=== PATIENT | male | born 1960 | race Caucasian/White ===

== ENCOUNTER 2023-10-27 10:31 | Inpatient (IN) | payer BC ==
[2023-10-27 12:18] LABS: #Eosinphils 0.2 thou/uL (0.0-0.7); #Monocytes 0.6 thou/uL (0.11-0.59); %Basophils 0.4 % (0.0-1.0); %Eosinophils 4.3 % (0.0-10.0); %Lymphocytes 30.3 % (21.0-51.0); %Monocytes 11.4 % (0.0-10.0); %Neutrophils 53.6 % (42.0-75.0); Hematocrit 36.9 % (42.0-52.0); Mean Corpuscular HGB CONC 35.2 g/dL (32.0-36.0); Mean Corpuscular Hemoglobin 30.5 pg (27.0-31.0); Mean Corpuscular Volume 86.6 fl (78.0-98.0); Mean Platelet Volume 9.8 fL (7.4-10.4); Platelet Count 217 10x3/uL (130-400); RBC Distribution Width 12.1 % (11.5-14.5); Red Blood Cell (RBC) Count 4.26 mill/uL (4.70-6.10); White Blood Cell (WBC) Count 5.6 10x3/uL (4.8-10.8)
[2023-10-27 12:42] LABS: ALT (SGPT) 36 U/L (8-55); AST (SGOT) 23 U/L (5-34); Albumin 4.2 g/dL (3.4-4.8); Alkaline Phosphatase 52 U/L (40-110); Anion Gap 12 mmol/L (10-20); BUN (Urea Nitrogen) 20 mg/dL (8.4-25.7); Bilirubin, Total 0.4 mg/dL (0.2-1.2); Calc. Creatinine Clearance 0 mL/min (70-130); Carbon Dioxide 23 mmol/L (23-31); Chloride 104 mmol/L (98-107); Estimated GFR 96; Glucose 201 mg/dL (80-115); Potassium 4.1 mmol/L (3.5-5.1); Protein, Total 7.2 g/dL (5.8-8.1); Sodium 135 mmol/L (136-145)
[2023-10-27 12:46] LABS: Troponin I 0.076 ng/mL (< 0.028)
[2023-10-27] MEDS ORDERED: Aspirin Chewable 81 MG TAB ONE (14:06)
[2023-10-27] MEDS ORDERED: Acetaminophen 650 MG Suppository PR PRN (15:20)
[2023-10-27] MEDS ORDERED: Acetaminophen 325 MG TAB PO PRN (15:20)
[2023-10-27] MEDS ORDERED: Nitroglycerin 0.4 MG TAB (25 Tab Bottle) SL PRN (15:21)
[2023-10-27] MEDS ORDERED: Dextrose 50% Abboject 50 ML SYRINGE SLOW IVP PRN (15:24)
[2023-10-27] MEDS ORDERED: Insulin Regular 300 UNITS/3 ML VIAL SC PRN ×2 (15:24)
[2023-10-27] MEDS ORDERED: Glucagon 1 MG/ML KIT IM PRN (15:24)
[2023-10-27] MEDS ORDERED: Dextrose 5% in Water 1,000 ML IV PRN (15:24)
[2023-10-27 16:11] VITALS: BMI 28.8
[2023-10-27 19:29] LABS: Troponin I 0.089 ng/mL (< 0.028)
[2023-10-27] MEDS ORDERED: Lisinopril 5 MG TAB PO SCH (21:00)
[2023-10-27] MEDS ORDERED: Amlodipine 5 MG TAB PO SCH (21:00)
[2023-10-27 22:36] LABS: Troponin I 0.076 ng/mL (< 0.028)
[2023-10-28 05:29] LABS: #Eosinphils 0.3 thou/uL (0.0-0.7); #Monocytes 0.7 thou/uL (0.11-0.59); #Neutrophils 2.1 thou/uL (1.40-6.50); %Basophils 0.8 % (0.0-1.0); %Eosinophils 6.2 % (0.0-10.0); %Monocytes 14.1 % (0.0-10.0); %Neutrophils 40.7 % (42.0-75.0); Hematocrit 36.8 % (42.0-52.0); Hemoglobin 12.5 g/dL (14.0-18.0); Mean Corpuscular Hemoglobin 30.1 pg (27.0-31.0); Mean Corpuscular Volume 88.7 fl (78.0-98.0); Mean Platelet Volume 9.5 fL (7.4-10.4); Platelet Count 214 10x3/uL (130-400); RBC Distribution Width 12.3 % (11.5-14.5); Red Blood Cell (RBC) Count 4.15 mill/uL (4.70-6.10); White Blood Cell (WBC) Count 5.2 10x3/uL (4.8-10.8)
[2023-10-28 05:54] LABS: Anion Gap 12 mmol/L (10-20); BUN (Urea Nitrogen) 17 mg/dL (8.4-25.7); Calc. Creatinine Clearance 100 mL/min (70-130); Calcium 8.9 mg/dL (7.8-10.44); Carbon Dioxide 26 mmol/L (23-31); Cardiac Risk 5.3 (Less than 4.5); Chloride 104 mmol/L (98-107); Cholesterol 160 mg/dl (< 200 Desired); Estimated GFR 88; Glucose 126 mg/dL (80-115); HDL Cholesterol 30 mg/dL (>60 Neg Risk); LDL Cholesterol, Calculated 106 mg/dL; Sodium 138 mmol/L (136-145); Triglycerides 121 mg/dL (Less than 150)
[2023-10-28] MEDS ORDERED: Glimepiride 4 MG TAB PO SCH (08:00)
[2023-10-28] MEDS ORDERED: Iopamidol 370 76% 100 ML VIAL ONE (08:51)
[2023-10-28] MEDS ORDERED: NIFEdipine XL 30 MG ER.TAB PO SCH (09:00)
[2023-10-28] MEDS ORDERED: Aspirin Chewable 81 MG TAB PO SCH (09:00)
[2023-10-28] MEDS ORDERED: Lidocaine 1% (PF) 30 ML VIAL ONE (09:31)
[2023-10-28] MEDS ORDERED: Verapamil 5 MG/2 ML VIAL ONE (09:31)
[2023-10-28] MEDS ORDERED: Adenosine 6 MG/2 ML VIAL ONE (09:31)
[2023-10-28] MEDS ORDERED: Heparin 10,000 UNITS/ 10 ML VIAL ONE (09:31)
[2023-10-28] MEDS ORDERED: Nitroglycerin 50 MG/250 ML BOT 0 ML ONE (09:31)
[2023-10-28] MEDS ORDERED: Heparin 25,000 units/D5W 500 ML ONE (10:00)
[2023-10-28] MEDS ORDERED: Albumin 5% 500 ML ONE (10:05)
[2023-10-28] MEDS ORDERED: diphenhydrAMINE 50 MG/ML VIAL ONE (10:10)
[2023-10-28] MEDS ORDERED: Fentanyl 250 MCG/5 ML VIAL ONE (10:30)
[2023-10-28] MEDS ORDERED: Heparin 10,000 UNITS/1 ML VIAL 30,000 UNITS in Sodium Chloride 0.9% 1,000 ML FS SCH (10:30)
[2023-10-28] MEDS ORDERED: Midazolam HCl 5 mg/ml Vial ONE (10:31)
[2023-10-28] MEDS ORDERED: Milrinone 10 MG/10 ML VIAL ONE ×2 (10:32→11:16)
[2023-10-28] MEDS ORDERED: ePHEDrine Sulfate 50 MG/10 ML VIAL ONE ×2 (10:35→10:58)
[2023-10-28] MEDS ORDERED: Mannitol 12.5 GM/50 ML ONE (10:58)
[2023-10-28] MEDS ORDERED: Potassium Chloride 60 MEQ/30 ML VIAL ONE (10:58)
[2023-10-28] MEDS ORDERED: Magnesium 5 GM/10 ML VIAL ONE (10:58)
[2023-10-28] MEDS ORDERED: Vancomycin 1 GM VIAL ONE (10:58)
[2023-10-28] MEDS ORDERED: Aminocaproic Acid 5 GM/20 ML VIAL ONE (10:58)
[2023-10-28] MEDS ORDERED: Sodium Bicarb 50 MEQ/50 ML VIAL ONE (10:58)
[2023-10-28] MEDS ORDERED: Lidocaine 1% PF 5 ML VIAL ONE (10:58)
[2023-10-28] MEDS ORDERED: Thrombin 5000 UNITS/5 ML VIAL ONE (10:58)
[2023-10-28] MEDS ORDERED: Rocuronium Bromide 10 MG/ML (10ML VIAL) ONE (10:58)
[2023-10-28] MEDS ORDERED: Heparin 30,000 units/30 ml VIAL ONE (10:58)
[2023-10-28] MEDS ORDERED: Norepinephrine 4 MG/4 ML VIAL ONE (10:58)
[2023-10-28] MEDS ORDERED: Heparin 5,000 UNITS/ML VIAL ONE (10:58)
[2023-10-28] MEDS ORDERED: Lidocaine 2% PF 100 mg/5 ml Syringe ONE (10:58)
[2023-10-28] MEDS ORDERED: PROPOFOL 200 MG/20 ML VIAL ONE (10:58)
[2023-10-28] MEDS ORDERED: Papaverine 60 MG/2 ML VIAL ONE (10:58)
[2023-10-28] MEDS ORDERED: Protamine Sulfate 250 MG/25 ML VIAL ONE (10:58)
[2023-10-28] MEDS ORDERED: Cardioplegic Soln 1,000 ML BAG ONE (10:58)
[2023-10-28] MEDS ORDERED: Calcium Chloride 1 GM/10 ML Abboject SYRINGE ONE (10:58)
[2023-10-28] MEDS ORDERED: PHENYLEPHRINE-NS 100 MCG/ML 10 ML SYRINGE ONE ×2 (11:12→12:07)
[2023-10-28] MEDS ORDERED: Insulin Regular 300 UNITS/3 ML VIAL ONE (11:12)
[2023-10-28] MEDS ORDERED: Milrinone Lactate/D5W 20 MG in Premix 1 BAG IV SCH (11:30)
[2023-10-28] MEDS ORDERED: Isoflurane INH ANEST 100 ML BOTTLE ONE (11:35)
[2023-10-28] MEDS ORDERED: Sodium Chloride 0.9% 100 ML ONE (12:01)
[2023-10-28] MEDS ORDERED: Sodium Chloride 0.9% 250 ML 250 ML ONE (12:01)
[2023-10-28] MEDS: Insulin Regular 300 UNITS/3 ML VIAL SC PRN (13:35)
[2023-10-28] MEDS ORDERED: DOPamine 400 MG/D5W 250 ML 250 ML IVPB PRN (13:44)
[2023-10-28] MEDS ORDERED: Ipratropium/Albuterol 3 ML NEB NEB PRN (13:44)
[2023-10-28] MEDS ORDERED: Hetastarch 6% 500 ML 500 ML IVPB PRN (13:44)
[2023-10-28] MEDS ORDERED: niCARdipine 25 MG in Sodium Chloride 0.9% 250 ML 250 ML IVPB PRN (13:44)
[2023-10-28] MEDS ORDERED: Post-Op Insulin Drip Protocol IVPB ONE (13:44)
[2023-10-28] MEDS ORDERED: Guaifenesin DM 100-10/5 ML UDCUP PO PRN (13:44)
[2023-10-28] MEDS ORDERED: Promethazine HCl 25 MG/ML VIAL IVPB PRN (13:44)
[2023-10-28] MEDS ORDERED: Acetaminophen 325 MG TAB PO PRN (13:44)
[2023-10-28] MEDS ORDERED: fentaNYL 50 mcg/mL 1 mL Vial SLOW IVP PRN ×2 (13:44)
[2023-10-28] MEDS ORDERED: Mag-Al 1200 mg/1200 mg/30 ML UDCUP PO PRN (13:44)
[2023-10-28] MEDS ORDERED: Bisacodyl 10 MG SUPP PR PRN (13:44)
[2023-10-28] MEDS ORDERED: Bisacodyl 5 MG TAB PO PRN (13:44)
[2023-10-28] MEDS ORDERED: Morphine 2 MG/ML VIAL SLOW IVP PRN (13:44)
[2023-10-28] MEDS ORDERED: Nitroglycerin 50 MG/250 ML BOT 250 ML IVPB PRN (13:44)
[2023-10-28] MEDS ORDERED: hydrALAZINE 20 MG/ML VIAL SLOW IVP PRN (13:44)
[2023-10-28] MEDS ORDERED: NOREPINEPHRINE 8 MG/250 ML-D5W 250 ML IVPB PRN (13:44)
[2023-10-28] MEDS ORDERED: HYDROcodone/Acetaminophen 5/325 mg Tablet PO PRN (13:44)
[2023-10-28] MEDS ORDERED: Ondansetron PF 4 MG/2 ML Vial IVP PRN (13:44)
[2023-10-28] MEDS ORDERED: Magnesium Sulfate 5 GM in Sodium Chloride 0.9% 1,000 ML IV SCH (13:44)
[2023-10-28] MEDS ORDERED: HUMULIN R 100 UNITS in Sodium Chloride 0.9% 100 ML IVPB SCH (14:00)
[2023-10-28] MEDS ORDERED: Dextrose 50% Abboject 50 ML SYRINGE SLOW IVP PRN (14:00)
[2023-10-28] MEDS ORDERED: Glucagon 1 MG/ML KIT SC PRN (14:00)
[2023-10-28] MEDS ORDERED: Dextrose 5% in Water 1,000 ML IV PRN (14:00)
[2023-10-28 14:08] LABS: Actual Bicarbonate (HCO3a) 19.7 mEq/L (22-28); Base Excess (BEa) -5.5 mEq/L (-2.0 to +3.0); CO2 Tension 37.7 mmHg (35.0-45.0); Carboxyhemoglobin (COHb) 0.5 gm% (0.0-3.0); Hematocrit-ABG 32 % (42.0-52.0); Hemoglobin (Hb) 10.8 g/dL (14.0-18.0); O2 Tension (PaO2), arterial 75.7 mmHg (> 80.0); Potassium - ABG Lab 4.11 mmol/L (3.70-5.30); pH, Arterial 7.337 (7.35-7.45)
[2023-10-28 14:10] LABS: Puncture Site Arterial Line
[2023-10-28 14:28] LABS: #Eosinphils 0.2 thou/uL (0.0-0.7); #Monocytes 0.9 thou/uL (0.11-0.59); #Neutrophils 9.2 thou/uL (1.40-6.50); %Basophils 0.2 % (0.0-1.0); %Eosinophils 1.2 % (0.0-10.0); %Lymphocytes 15.9 % (21.0-51.0); %Monocytes 6.9 % (0.0-10.0); %Neutrophils 75.1 % (42.0-75.0); Hematocrit 31.1 % (42.0-52.0); Hemoglobin 10.7 g/dL (14.0-18.0); Mean Corpuscular HGB CONC 34.4 g/dL (32.0-36.0); Mean Corpuscular Hemoglobin 30.5 pg (27.0-31.0); Mean Corpuscular Volume 88.6 fl (78.0-98.0); Mean Platelet Volume 9.8 fL (7.4-10.4); Platelet Count 183 10x3/uL (130-400); RBC Distribution Width 12.4 % (11.5-14.5); Red Blood Cell (RBC) Count 3.51 mill/uL (4.70-6.10); White Blood Cell (WBC) Count 12.3 10x3/uL (4.8-10.8)
[2023-10-28 14:42] LABS: INR-International Normal Ratio 1.3; PTT 28.4 sec (22.9-36.1); Prothrombin Time 16.7 sec (12.0-14.7)
[2023-10-28 14:55] LABS: Anion Gap 11 mmol/L (10-20); Carbon Dioxide 23 mmol/L (23-31); Chloride 110 mmol/L (98-107); Potassium 4.3 mmol/L (3.5-5.1); Sodium 140 mmol/L (136-145)
[2023-10-28 14:56] LABS: BUN (Urea Nitrogen) 16 mg/dL (8.4-25.7); Calc. Creatinine Clearance 105 mL/min (70-130); Calcium 7.4 mg/dL (7.6-10.4); Estimated GFR 94; Glucose 159 mg/dL (80-115)
[2023-10-28] MEDS: Potassium Chloride 20 MEQ/100 ML PREMIX BAG IVPB PRN (15:58)
[2023-10-28 17:05] LABS: Base Excess (BEa) -8.2 mEq/L (-2.0 to +3.0); CO2 Tension 39.6 mmHg (35.0-45.0); Calcium, Ionized (arterial) 1.11 mmol/L (1.12-1.30); Carboxyhemoglobin (COHb) 1.3 gm% (0.0-3.0); Hematocrit-ABG 32 % (42.0-52.0); Hemoglobin (Hb) 10.9 g/dL (14.0-18.0); O2 Tension (PaO2), arterial 85.4 mmHg (> 80.0); pH, Arterial 7.275 (7.35-7.45)
[2023-10-28 17:10] LABS: Puncture Site Arterial Line
[2023-10-28] MEDS ORDERED: Sodium Bicarb 50 MEQ/50 ML Abboject 8.4% SYRINGE IVP SCH ×2 (17:30→19:00)
[2023-10-28] MEDS: CEFAZOLIN 2 GM in Sodium Chloride 0.9% 100 ML IVPB SCH (17:35)
[2023-10-28] MEDS: Ketorolac Tromethamine 30 MG/ML VIAL IVP SCH ×2 (17:35→23:12)
[2023-10-28 18:37] LABS: Actual Bicarbonate (HCO3a) 20.5 mEq/L (22-28); Base Excess (BEa) -4.8 mEq/L (-2.0 to +3.0); CO2 Tension 38.7 mmHg (35.0-45.0); Calcium, Ionized (arterial) 1.06 mmol/L (1.12-1.30); Carboxyhemoglobin (COHb) 0.2 gm% (0.0-3.0); Hematocrit-ABG 31 % (42.0-52.0); Hemoglobin (Hb) 10.6 g/dL (14.0-18.0); O2 Tension (PaO2), arterial 61.5 mmHg (> 80.0); Potassium - ABG Lab 4.23 mmol/L (3.70-5.30); pH, Arterial 7.342 (7.35-7.45)
[2023-10-28 18:41] LABS: Puncture Site Arterial Line
[2023-10-28 19:48] LABS: Hematocrit 29.1 % (42.0-52.0); Hemoglobin 10.1 g/dL (14.0-18.0)
[2023-10-28] MEDS: Famotidine/PF 20 mg/2ml Vial SLOW IVP SCH (20:00)
[2023-10-28 20:06] LABS: Potassium 4.3 mmol/L (3.5-5.1)
[2023-10-28] MEDS ORDERED: Atorvastatin Calcium 20 MG TAB PO SCH ×2 (21:00)
[2023-10-29] MEDS: Lactated Ringer's 1,000 ML IV SCH ×2 (00:23→02:00)
[2023-10-29] MEDS: CEFAZOLIN 2 GM in Sodium Chloride 0.9% 100 ML IVPB SCH ×2 (01:59→09:44)
[2023-10-29 04:37] LABS: #Monocytes 0.7 thou/uL (0.11-0.59); #Neutrophils 4.9 thou/uL (1.40-6.50); %Basophils 0.2 % (0.0-1.0); %Eosinophils 0.2 % (0.0-10.0); %Lymphocytes 13.1 % (21.0-51.0); %Monocytes 11.2 % (0.0-10.0); %Neutrophils 74.7 % (42.0-75.0); Hematocrit 24.1 % (42.0-52.0); Hemoglobin 8.1 g/dL (14.0-18.0); Mean Corpuscular HGB CONC 33.6 g/dL (32.0-36.0); Mean Corpuscular Volume 89.3 fl (78.0-98.0); Platelet Count 156 10x3/uL (130-400); RBC Distribution Width 12.7 % (11.5-14.5); White Blood Cell (WBC) Count 6.6 10x3/uL (4.8-10.8)
[2023-10-29 05:06] LABS: Anion Gap 12 mmol/L (10-20); BUN (Urea Nitrogen) 16 mg/dL (8.4-25.7); Calc. Creatinine Clearance 109 mL/min (70-130); Calcium 7.4 mg/dL (7.8-10.44); Carbon Dioxide 24 mmol/L (23-31); Chloride 110 mmol/L (98-107); Estimated GFR 96; Glucose 124 mg/dL (80-115); Potassium 4.1 mmol/L (3.5-5.1); Sodium 142 mmol/L (136-145)
[2023-10-29] MEDS: Ketorolac Tromethamine 30 MG/ML VIAL IVP SCH ×3 (05:33→18:34)
[2023-10-29] MEDS ORDERED: Insulin Glargine 30 UNITS/0.3 ML VIAL SC SCH (07:45)
[2023-10-29] MEDS: Magnesium 2 GM/50 ML(in water) 2 GM in Premix 1 BAG IVPB SCH (08:30)
[2023-10-29] MEDS: Aspirin 325 MG TAB PO SCH (08:30)
[2023-10-29] MEDS: Glimepiride 4 MG TAB PO SCH (08:30)
[2023-10-29] MEDS: Famotidine/PF 20 mg/2ml Vial SLOW IVP SCH (08:31)
[2023-10-29] MEDS: Alogliptin 6.25 MG TAB PO SCH (09:14)
[2023-10-29] MEDS: HYDROcodone/Acetaminophen 5/325 mg Tablet PO PRN ×3 (09:44→21:15)
[2023-10-29] MEDS: Insulin Regular 300 UNITS/3 ML VIAL SC PRN ×3 (11:44→21:18)
[2023-10-29 13:47] LABS: Hematocrit 23.6 % (42.0-52.0); Hemoglobin 7.8 g/dL (14.0-18.0); Platelet Count 135 10x3/uL (130-400)
[2023-10-29] MEDS: Atorvastatin Calcium 20 MG TAB PO SCH (20:12)
[2023-10-30] MEDS: Ketorolac Tromethamine 30 MG/ML VIAL IVP SCH ×4 (00:14→17:48)
[2023-10-30 04:50] LABS: #Eosinphils 0.1 thou/uL (0.0-0.7); #Monocytes 0.7 thou/uL (0.11-0.59); #Neutrophils 4.2 thou/uL (1.40-6.50); %Basophils 0.3 % (0.0-1.0); %Eosinophils 1.4 % (0.0-10.0); %Lymphocytes 20.2 % (21.0-51.0); %Monocytes 10.8 % (0.0-10.0); %Neutrophils 67.1 % (42.0-75.0); Hematocrit 27.4 % (42.0-52.0); Mean Corpuscular HGB CONC 32.8 g/dL (32.0-36.0); Mean Corpuscular Hemoglobin 29.7 pg (27.0-31.0); Mean Corpuscular Volume 90.4 fl (78.0-98.0); Mean Platelet Volume 10.1 fL (7.4-10.4); Platelet Count 126 10x3/uL (130-400); RBC Distribution Width 13.2 % (11.5-14.5); Red Blood Cell (RBC) Count 3.03 mill/uL (4.70-6.10); White Blood Cell (WBC) Count 6.2 10x3/uL (4.8-10.8)
[2023-10-30 05:25] LABS: Anion Gap 11 mmol/L (10-20); BUN (Urea Nitrogen) 24 mg/dL (8.4-25.7); Calc. Creatinine Clearance 38 mL/min (70-130); Carbon Dioxide 24 mmol/L (23-31); Chloride 109 mmol/L (98-107); Estimated GFR 97; Glucose 138 mg/dL (80-115); Potassium 3.9 mmol/L (3.5-5.1); Sodium 140 mmol/L (136-145)
[2023-10-30] MEDS: Potassium Chloride 20 MEQ/100 ML PREMIX BAG IVPB PRN (05:59)
[2023-10-30] MEDS: Insulin Regular 300 UNITS/3 ML VIAL SC PRN ×3 (06:05→17:47)
[2023-10-30] MEDS ORDERED: Furosemide 40 MG/4 ML VIAL SLOW IVP SCH (07:30)
[2023-10-30] MEDS ORDERED: Artificial Tear Sol 15 ML BOT EA EYE PRN (07:40)
[2023-10-30] MEDS ORDERED: Nitroglycerin 0.4 MG TAB (25 Tab Bottle) SL PRN (07:40)
[2023-10-30] MEDS ORDERED: Mineral Oil ENEMA PR PRN (07:40)
[2023-10-30] MEDS: Metoprolol Tartrate 25 MG TAB PO SCH ×2 (08:21→20:36)
[2023-10-30] MEDS: Potassium Chloride 10 MEQ TAB PO SCH (08:21)
[2023-10-30] MEDS: Aspirin 325 MG TAB PO SCH (08:21)
[2023-10-30] MEDS: Glimepiride 4 MG TAB PO SCH (08:21)
[2023-10-30] MEDS: Magnesium 2 GM/50 ML(in water) 2 GM in Premix 1 BAG IVPB SCH (08:22)
[2023-10-30] MEDS ORDERED: Glucagon 1 MG/ML KIT SC PRN (08:30)
[2023-10-30] MEDS ORDERED: Dextrose 50% Abboject 50 ML SYRINGE SLOW IVP PRN (08:30)
[2023-10-30] MEDS ORDERED: Dextrose 5% in Water 1,000 ML IV PRN (08:30)
[2023-10-30] MEDS ORDERED: Famotidine/PF 20 mg/2ml Vial SLOW IVP SCH (09:00)
[2023-10-30] MEDS ORDERED: Furosemide 40 MG TAB PO SCH (09:00)
[2023-10-30] MEDS: Alogliptin 6.25 MG TAB PO SCH (09:16)
[2023-10-30] MEDS: Atorvastatin Calcium 20 MG TAB PO SCH (20:36)
[2023-10-31] MEDS: Ketorolac Tromethamine 30 MG/ML VIAL IVP SCH ×4 (00:13→17:57)
[2023-10-31] MEDS ORDERED: Furosemide 40 MG/4 ML VIAL SLOW IVP SCH (07:00)
[2023-10-31] MEDS: Alogliptin 6.25 MG TAB PO SCH (08:14)
[2023-10-31] MEDS: Aspirin 325 MG TAB PO SCH (08:14)
[2023-10-31] MEDS: Potassium Chloride 10 MEQ TAB PO SCH (08:14)
[2023-10-31] MEDS: Glimepiride 4 MG TAB PO SCH (08:14)
[2023-10-31] MEDS: Empagliflozin 10 MG TAB PO SCH (08:16)
[2023-10-31] MEDS: Insulin Regular 300 UNITS/3 ML VIAL SC PRN ×2 (17:57→22:21)
[2023-10-31] MEDS: Atorvastatin Calcium 20 MG TAB PO SCH (21:44)
[2023-11-01 04:44] LABS: #Eosinphils 0.4 thou/uL (0.0-0.7); #Monocytes 0.9 thou/uL (0.11-0.59); #Neutrophils 5.2 thou/uL (1.40-6.50); %Basophils 0.5 % (0.0-1.0); %Eosinophils 4.4 % (0.0-10.0); %Lymphocytes 19.3 % (21.0-51.0); %Monocytes 11.4 % (0.0-10.0); %Neutrophils 63.9 % (42.0-75.0); Hemoglobin 9.8 g/dL (14.0-18.0); Mean Corpuscular HGB CONC 32.7 g/dL (32.0-36.0); Mean Corpuscular Volume 91.7 fl (78.0-98.0); Mean Platelet Volume 10.3 fL (7.4-10.4); Platelet Count 228 10x3/uL (130-400); RBC Distribution Width 12.8 % (11.5-14.5); Red Blood Cell (RBC) Count 3.27 mill/uL (4.70-6.10); White Blood Cell (WBC) Count 8.1 10x3/uL (4.8-10.8)
[2023-11-01 05:21] LABS: Anion Gap 15 mmol/L (10-20); BUN (Urea Nitrogen) 32 mg/dL (8.4-25.7); Calc. Creatinine Clearance 88 mL/min (70-130); Carbon Dioxide 25 mmol/L (23-31); Chloride 104 mmol/L (98-107); Estimated GFR 71; Glucose 97 mg/dL (80-115); Potassium 3.8 mmol/L (3.5-5.1); Sodium 140 mmol/L (136-145)
[2023-11-01] MEDS: Aspirin 325 MG TAB PO SCH (09:06)
[2023-11-01] MEDS: Alogliptin 6.25 MG TAB PO SCH (09:06)
[2023-11-01] MEDS: Empagliflozin 10 MG TAB PO SCH (09:06)
[2023-11-01] MEDS: Potassium Chloride 10 MEQ TAB PO SCH (09:06)
[2023-11-01] MEDS: Glimepiride 4 MG TAB PO SCH (09:06)
[2023-11-01 12:12] VITALS: BP 132/72
[2023-11-01 12:49] VITALS: TEMP 97.7
== END 2023-11-01 17:30 | disposition home or self-care (01) | DRG 234 ==
LOC: ERS 10:31 → 2SW 15:47 → OBSVTOIN 10-28 10:55 → CCU 10-28 11:27 → 2NO 10-30 15:34
PROVIDERS: ADMIT Internal Medicine; ATTEND Internal Medicine
PROC: 4A023N7 Measurement of Cardiac Sampling and Pressure, Left Heart, Percutaneous Approach (ICD-10-PCS; principal; 2023-10-28)
PROC: 02100Z9 Bypass Coronary Artery, One Artery from Left Internal Mammary, Open Approach (ICD-10-PCS; 2023-10-28)
PROC: B2111ZZ Fluoroscopy of Multiple Coronary Arteries using Low Osmolar Contrast (ICD-10-PCS; 2023-10-28)
PROC: 021109W Bypass Coronary Artery, Two Arteries from Aorta with Autologous Venous Tissue, Open Approach (ICD-10-PCS; 2023-10-28)
PROC: 06BQ4ZZ Excision of Left Saphenous Vein, Percutaneous Endoscopic Approach (ICD-10-PCS; 2023-10-28)
PROC: B2151ZZ Fluoroscopy of Left Heart using Low Osmolar Contrast (ICD-10-PCS; 2023-10-28)
PROC: 5A1221Z Performance of Cardiac Output, Continuous (ICD-10-PCS; 2023-10-28)
PROC: 02L70CK Occlusion of Left Atrial Appendage with Extraluminal Device, Open Approach (ICD-10-PCS; 2023-10-28)
PROC: 4A133R1 Monitoring of Arterial Saturation, Peripheral, Percutaneous Approach (ICD-10-PCS; 2023-10-28)
PROC: 30233J1 Transfusion of Nonautologous Serum Albumin into Peripheral Vein, Percutaneous Approach (ICD-10-PCS; 2023-10-28)
PROC: 3E033XZ Introduction of Vasopressor into Peripheral Vein, Percutaneous Approach (ICD-10-PCS; 2023-10-28)
PROC: 30233N1 Transfusion of Nonautologous Red Blood Cells into Peripheral Vein, Percutaneous Approach (ICD-10-PCS; 2023-10-29)
DX: I21.4 Non-ST elevation (NSTEMI) myocardial infarction (principal); E87.1 Hypo-osmolality and hyponatremia; E11.9 Type 2 diabetes mellitus without complications; I24.9 Acute ischemic heart disease, unspecified; I10 Essential (primary) hypertension; I25.10 Atherosclerotic heart disease of native coronary artery without angina pectoris; G47.33 Obstructive sleep apnea (adult) (pediatric); Z98.890 Other specified postprocedural states; Z82.49 Family history of ischemic heart disease and other diseases of the circulatory system; Z79.82 Long term (current) use of aspirin; Z79.899 Other long term (current) drug therapy; Z79.84 Long term (current) use of oral hypoglycemic drugs
CPT/HCPCS: 36415; 36416; 36430; 71045; 78451; 80048; 80053; 80061; 82805; 84484; 85025; 85379; 85610; 85730; 86850; 86900; 86901; 93005; 93010; 93017; 93458; 93798; 94002; 94760; 97139; A4311; A9502; C1751; C1769; G0378; J0153; J1200; J1644; J1815; J1885; J1940; J2001; J2150; J2250; J2260; J2440; J2704; J2720; J3010; J3370; J3475; J3480; J3490; J7050; J7120; P9016; P9045; Q9967; S0017; S0028